=== PATIENT | female | born 1955 | race Caucasian/White ===

== ENCOUNTER → 2020-05-19 10:12 | Outpatient (CLI) | payer BC, SELFPAY ==
--- NOTE | ~2020-05-19 | MM_ITS ---
EXAMINATION: MM screening arnol BI w koko HISTORY: Screening TECHNIQUE: Craniocaudal and mediolateral oblique 3-D tomosynthesis images were obtained and synthetic 2-D images were generated. CAD analysis was submitted and interpreted. COMPARISON: Comparison to multiple prior studies sequentially, with oldest reviewed study dated 12/29. BREAST PARENCHYMAL COMPOSITION: There are scattered areas of fibroglandular density. FINDINGS: There is no evidence of suspicious mass, calcification, or architectural distortion to sugg est malignancy in either breast. There has been no suspicious interval change. IMPRESSION: 1. No mammographic evidence of malignancy. 2. Recommend routine screening mammography in one year. BI-RADS Category 1: Negative Reviewed, dictated and finalized at location A.
== END ==
PROVIDERS: PCP Family Medicine Adolescent Medicine; Visit Provider Nurse Practitioner
DX: Z12.31 Encounter for screening mammogram for malignant neoplasm of breast (principal); M85.88 Other specified disorders of bone density and structure, other site
CPT/HCPCS: 77063; 77067

== ENCOUNTER → 2020-07-18 09:13 | Outpatient (CLI) | payer MEDICARE, SELFPAY ==
--- NOTE | ~2020-07-18 | DEXA_ITS ---
Bone Density Report Name: Isabelle Galdamez Age: 64 Sex: Female Ethnicity: White Date of : 1955 Indication: osteopenia; asthma or emphysema; postmenopausal Referring Provider: SARINA, AMBAR Study: Bone densitometry was performed. Exam Date: July 18, 2020 Accession number: [id number] Bone Density: Region BMD T-score Z-score Classification AP Spine (L1, L2, L3) 0.751 -2.4 -0.7 Osteopenia Femoral Neck (Left) 0.639 -1.9 -0.4 Osteopenia Total Hip (Left) 0.872 -0.6 0.6 Normal Femoral Neck (Right) 0.645 -1.8 -0.3 Osteopenia Total Hip (Right) 0.870 -0.6 0.6 Normal Total Hip Mean 0.871 -0.6 0.6 Normal World Health Organization criteria for BMD impression classify patients as: Normal (T-score at or above -1.0), Osteopenia (T-score between -1.0 and -2.5), or Osteoporosis (T-score at or below -2.5). 10-year Fracture Risk(1): Major Osteoporotic Fracture 9.8% Hip Fracture 1.3% Reported Risk Factors: [place] (), Neck BMD=0.645, BMI=27.5 (1) FRAX(R) Version 3.08. Fracture probability calculated for an untreated patient. Fracture probability may be lower if the patient has received treatment. Previous Exams: Region Exam Age BMD T-score BMD Change BMD Change Date g/cm2 vs Baseline vs Previous AP Spine(L1, L2, L3) 07/18/2020 64 0.751 -2.4 -0.163* -0.024* 12/25/2017 62 0.775 -2.2 -0.138* -0.016 10/24/2015 60 0.791 -2.1 -0.122* 0.012 10/12/2013 58 0.779 -2.2 -0.135* -0.056* 05/07/2011 55 0.835 -1.7 -0.079* -0.079* 08/10/2009 53 0.913 -1.0 Total Hip(Left) 07/18/2020 64 0.872 -0.6 -0.078* -0.025 12/25/2017 62 0.897 -0.4 -0.053* -0.026 10/24/2015 60 0.923 -0.2 -0.027 0.066* 10/12/2013 58 0.857 -0.7 -0.093* -0.062* 05/07/2011 55 0.919 -0.2 -0.031* -0.031* 08/10/2009 53 0.950 0.1 Total Hip(Right) 07/18/2020 64 0.870 -0.6 -0.073* -0.010 12/25/2017 62 0.880 -0.5 -0.062* -0.026 10/24/2015 60 0.907 -0.3 -0.036* 0.063* 10/12/2013 58 0.844 -0.8 -0.099* -0.056* 05/07/2011 55 0.900 -0.3 -0.043* -0.043* 08/10/2009 53 0.943 0.0 *Denotes significance at 95% confidence level, LSC for AP Spine = 0.022 g/cm2, LSC for Total Hip = 0.027 g/cm2 Clinical Information Provided by Patient:
== END ==
PROVIDERS: PCP Family Medicine Adolescent Medicine; Visit Provider Nurse Practitioner
DX: M85.88 Other specified disorders of bone density and structure, other site (principal); M85.852 Other specified disorders of bone density and structure, left thigh; M85.851 Other specified disorders of bone density and structure, right thigh
CPT/HCPCS: 77080

== ENCOUNTER 2020-11-18 09:00 | Outpatient (CLI) | payer MEDICARE, SELFPAY | END 2020-11-18 09:01 | disposition home or self-care (01) | LOC: ANHCOVIDVC 09:00 | PROVIDERS: PCP Family Medicine Adolescent Medicine | DX: Z23 Encounter for immunization (principal) | CPT/HCPCS: 0001A; 91300 ==

== ENCOUNTER 2020-12-09 09:00 | Outpatient (CLI) | payer MEDICARE, SELFPAY | END 2020-12-09 09:01 | disposition home or self-care (01) | LOC: ANHCOVIDVC 09:00 | PROVIDERS: PCP Family Medicine Adolescent Medicine | DX: Z23 Encounter for immunization (principal) | CPT/HCPCS: 0002A; 91300 ==

== ENCOUNTER → 2021-06-27 12:12 | Outpatient (CLI) | payer MEDICARE, SELFPAY ==
--- NOTE | ~2021-06-27 | MM_ITS ---
EXAMINATION: MM screening arnol BI w koko HISTORY: Screening TECHNIQUE: Craniocaudal and mediolateral oblique 3-D tomosynthesis images were obtained and synthetic 2-D images were generated. CAD analysis was submitted and interpreted. COMPARISON: Comparison to multiple prior studies sequentially, with oldest reviewed study dated 11/09. BREAST PARENCHYMAL COMPOSITION: There are scattered areas of fibroglandular density. FINDINGS: There is no evidence of suspicious mass, calcification, or architectural distortion to sugg est malignancy in either breast. There has been no suspicious interval change. IMPRESSION: 1. No mammographic evidence of malignancy. 2. Recommend routine screening mammography in one year. BI-RADS Category 1: Negative Reviewed, dictated and finalized at location A.
== END ==
PROVIDERS: PCP Family Medicine Adolescent Medicine; Visit Provider Nurse Practitioner
DX: Z12.31 Encounter for screening mammogram for malignant neoplasm of breast (principal)
CPT/HCPCS: 77063; 77067

== ENCOUNTER → 2021-07-13 14:46 | Outpatient (CLI) | payer MEDICARE, SELFPAY ==
--- NOTE | ~2021-07-13 | XR_ITS ---
EXAMINATION: XR chest 2V DATE: 07/13/2021 15:08 INDICATION: Recurrent cough. TECHNIQUE: Frontal and lateral views of the chest were obtained. COMPARISON: None. FINDINGS: The chest demonstrates clear lungs without pneumonia, pleural effusion, or pneumothorax. Th e heart size is normal. IMPRESSION: 1. No acute cardiopulmonary disease. Reviewed, dictated and finalized at location A.
== END ==
PROVIDERS: PCP Family Medicine Adolescent Medicine; Visit Provider Family Medicine Adolescent Medicine
DX: R05.9 Cough, unspecified (principal)
CPT/HCPCS: 71046

== ENCOUNTER 2021-11-24 10:31 | Outpatient (CLI) | payer OTHER, SELFPAY ==
--- NOTE | 2021-11-24 10:30 | ECG_ITS ---
Measurements Intervals [place] Rate: 87 P: 38 [place]: 145 QRS: 26 QRSD: 81 T: 34 QT: 365 QTc: 440 Interpretive Statements SINUS RHYTHM POSSIBLE LEFT ATRIAL ENLARGEMENT [-0.1mV P WAVE IN V1/V2] RSR' V1/V2 BASELINE ARTIFACT BORDERLINE ECG NO PREVIOUS ECG AVAILABLE FOR COMPARISON Electronically Signed On 11-24-2021 15:13:10 COLOR EXPERT by Tomas Staton M.D.
[2021-11-24 10:57] LABS: Hematocrit 45.7 % (37.0-47.0); Hemoglobin 15.4 g/dL (12.0-15.0)
== END 2021-11-24 10:32 | disposition home or self-care (01) ==
LOC: ANHSURGERY 10:33
PROVIDERS: Anesthesiology; PCP Family Medicine Adolescent Medicine; Visit Provider Surgery Plastic and Reconstructive Surgery
DX: L57.4 Cutis laxa senilis (principal); Z01.818 Encounter for other preprocedural examination; R94.31 Abnormal electrocardiogram [ECG] [EKG]
CPT/HCPCS: 36415; 85014; 85018; 93005

== ENCOUNTER 2021-11-28 00:52 | Day surgery (SDC) | payer OTHER, SELFPAY ==
--- NOTE | 2021-11-22 13:37 | PC.NURSE ---
Report to the Outpatient Waiting Room, entrance under the green pavilion located off [facility], at time _0600 on date __11/28/21 . OR Time: . - You and your visitor will be asked a series of questions to screen for COVID 19 for your protection. - A mask is required within the hospital. Preoperative COVID Testing Requirements: No COVID Test needed if: (proof is required; if not received patient will have Rapid Test prior to entry) - Patient has received COVID Vaccine at least 14 days prior to procedure date or - Patient has positive COVID test result within last 90 days of surgery date. COVID Test needed if above criteria is not met If not COVID vaccinated a COVID test must be conducted within 72 hours of surgery and patient is asked to isolate self from time of testing until procedure. You will go to the [facility] for your COVID testing. The [facility] is located at the corner of [address] [facility]. You will only be called if COVID results are positive and your surgeon may reschedule your elective surgery date. Patients may have clear liquids (water, carbonated beverages, clear teas, apple juice) until 3 hours prior to surgery with a maximum of 20 ounces. - No food from midnight until time of surgery Take the following medications with a SIP of water the morning of surgery: ___INHALER IF NEEDED Medications to discontinue per physician ALL VITAMINS AND SUPPLEMENTS 3 DAYS PRE OP Date to take last dose___11/24/21 Please no make-up, nail tamazight, hairspray, perfume, deodorant, or body powder the day of surgery. No jewelry (including any body piercings) or valuables the day of surgery, leave them at home. Please take a shower or bath the night before, or the morning of, surgery with an antibacterial soap. Wear comfortable, loose fitting clothing. Children are encouraged to wear pajamas. - Jewelry must be removed prior to entering the operating room. Rings and piercings that are not removed may be cut off. - The hospital will not accept responsibility for valuables. - Please leave all valuables, including medications, at home the day of surgery. If you are going home after surgery, a licensed bookmobile driver must drive you home. - NO public transportation without another adult. - We recommend that an adult stay with you for 24 hours following discharge. - We also recommend that you do not drive, make important decision, drink alcoholic beverages, or take any drugs that were not prescribed by your health care provider for at least 24 hours after your discharge time. One visitor will be allowed to accompany the patient into the hospital. Patients visitor will be instructed to remain with patient at all times or leave the building. We will allow the visitor to come back to the postoperative area when patient is ready. Follow any additional instructions given to you from your surgeon. Telephone instructions given to __PATIENT and asked if any additional questions and then verbalized understanding. Patient advised to call surgeon office or pre surgery nurse liaison [phone] if any additional questions.
[2021-11-22 13:45] VITALS: BMI 28.9
--- NOTE | 2021-11-27 16:28 | WPDANESEPPF ---
Anes - Initial Pre Proc Eval Procedure: Operation Date: 11/28/21 07:30 Proposed Procedures p Temporal Brow Lift, - Anam Briones MD s Face and Neck Lift with Facial Fat Grafting, - Anam Briones MD s Abdominoplasty - Anam Briones MD Date/Time: 11/27/21 16:28 Surgeon: Anam Briones MD Pre Op Diagnosis: skin laxity Patient Data Age: 66 Gender: F Height: 1.57 m Weight: 71.7 kg Allergies Allergy/AdvReac Type Severity Reaction Status Date / Time Sulfa (Sulfonamide Allergy Unknown unknown Verified 11/28/21 07:01 Antibiotics) codeine AdvReac Nausea Verified 11/28/21 07:01 Home Medications Medication Instructions Recorded Confirmed Type carisoprodol 350 mg tablet 350 mg PO TID PRN #21 tablet 11/15/21 11/28/21 Rx docusate sodium 100 mg capsule 100 mg PO DAILY #14 cap 11/15/21 11/28/21 Rx ondansetron HCl 4 mg tablet 4 mg PO Q8H #21 tablet 11/15/21 11/28/21 Rx oxycodone-acetaminophen 5 mg-325 1 tablet PO Q6H PRN #30 tablet 11/15/21 11/28/21 Rx mg tablet albuterol sulfate 2 puff INHALATION PRN PRN 11/22/21 11/28/21 History biotin 5 mg PO DAILY 11/22/21 11/28/21 History cyanocobalamin (vitamin B-12) 1,000 mcg PO 3XW 11/22/21 11/28/21 History multivitamin with minerals 1 tablet PO DAILY 11/22/21 11/28/21 History [Hair,Skin and Nails] Patient hx anesthesia problems: none Family hx anesthesia problems: none Results Review: All pre-operative results and documents have been reviewed as part of the pre-operative evaluation. [facility] Past Medical History Medical History (Updated 11/27/21 @ 16:28 by Daryl Cohn MD) Asthma Surgical History Surgical History History of Family History Family History Other Dementia Pulmonary fibrosis Social History Social History Smoking packs per day: 0.5 Smoking cigarettes per day: 10.0 Years smoked: 10 Smoking pack-years: 5.00 Smoking status: Former smoker Tobacco type: cigarettes Smoking end date: 09/16/84 Living arrangements: with family Spiritual care concerns: No Anes - Eval Final PreProcedure Day of Procedure 11/27/21 16:28 Patient weight: overweight Heart: regular rate and rhythm Lungs: clear to auscultation Airway: Mallampati scale class II Neurological: alert and oriented Last oral intake: >/= 8 hours ASA classification: II Emergent: no Anesthetic plan: proceed Anesthesia type and monitoring: general ETT and standard monitoring Results Review: All pre-operative results and documents have been reviewed as part of the pre-operative evaluation. Informed Consent: The patient's anesthetic plan and its attendant risks and benefits were discussed with the patient/family/POA. Questions were solicited and answers provided to the satisfaction of the patient/family/POA.
[2021-11-28] VITALS (10 sets, daily range): BP systolic 121–136; BP diastolic 69–79; PULSE 76–99; RESP 12–20; TEMP 36.3–37.1; O2SAT 94–98
[2021-11-28] MEDS: LACTATED RINGERS 1,000 ML 30 ML IV CONT ×2 (06:31→15:03)
[2021-11-28 06:42] LABS: Urine Cotinine NEGATIVE
--- NOTE | 2021-11-28 07:15 | WPDHPUPDATE1 ---
History and Physical Update Update Date/Time: 11/28/21 07:15 History and Physical has been reviewed, including an updated exam of the patient. There are NO changes in the patient's condition. Risks, benefits, and alternatives have been discussed and questions answered. Patient agrees to proceed with procedure.
--- NOTE | 2021-11-28 07:15 | W.PM.PROC2 ---
Procedure Note - Detailed Date of Procedure 11/28/21 Pre-op Diagnosis skin laxity Post-op Diagnosis Same Procedure Performed 1. Bilateral temporal subcutaneous brow lift. 2. Face / Neck lift 3. Facial fat grafting 4. Progressive tension abdominoplasty Surgeon Anam Briones MD Findings Facial fat grafting volume Right Infraorbital 3cc Lateral orbital 2cc Malar 5cc Yazidi 2cc Nasal labial 0.5cc Left Infraorbital 3cc Lateral orbital 1.5cc Malar 4cc Yazidi 2cc Nasal labial 0.5cc Abdominoplasty tissue removed: 1264 grams Description of Procedure They are here today for the above. Previously and again today the risks, benefits, alternatives were discussed in extensive detail. I wanted them to be very realistic about the risks involved as well as expectations. She understands we will improve structure however not skin quality. This is completed with other treatments such as laser resurfacing. She also understands we will do nothing perioccular. She does have some hallowing of upper lid; however, is happy with appearance and does not wish to treat. We discussed aftercare and what to monitor for. I was very upfront about the risks of wound breakdown leading to loss of skin, open wounds, and need for additional procedures with permanent abdominal deformity. We discussed DVT/PE risks and management. Made sure answered all of their questions to their satisfaction today and consent was obtained. They were marked in the preoperative holding area with their verification. The patient was taken to the operating room placed supine on the operating table. Anesthesia was provided by anesthesiology. A Amado catheter was started. They were prepped and draped in a standard sterile fashion. A surgical time-out was taken. Fat grafting A thorough abdominal examination was completed. No hernias palpable. Stab incision was made and a tumesced with a tumescent solution. Once adequate time for hemostasis I used a 3 mm multi hole suction cannula on low-pressure into a gravity separation device. We will out adequate time for separation of the adipose tissue and then proceeded with facial fat grafting. Using only the central adipose tissue which was passed through a lower lock adapter in order to create micro fat I used 18 gauge needle and blunt tip cannula to inject infraorbital, malar, temples as wall as along the marionette and nasolabial folds. In the nasolabial and marionette I used a V dissect her as well. C volume so above. Brow lift 1% lidocaine and 0.25% Marcaine with epinephrine was used anesthetize the planned incision as well as dissection region. Fifteen blade was used to make an incision along the hairline extending from mid pupillary laterally. I elevated in the subcutaneous plane superficial to the frontalis muscle down to above the orbital rim and lateral to the orbital rim. I estimate amount to be removed based on preoperative markings and intraoperative observations. This was tacked into place and I closed with 4-0 Nylon. Face / Neck Lift Stab incisions were made and I tumesced with a tumescent solution. Once adequate time for hemostasis a 15 blade used to make a submental incision. I elevated the neck flap as necessary leaving well-vascularized adipose tissue on the flap. Also incised pre of brachial her and post tragal incisions and elevated the facial flaps as necessary for full exposure. I also left these well-vascularized raising just above the SMAS. Submental dissection was continued down and the elevated bilateral platysma. Removed any excess adipose tissue of which she had minimal. I then plicated the platysma in the midline using vertical mattress 2-0 Vicryl. Platysma was transected. I created a platysmal platysmal window which was sutured to mastoid fascia with 2-0 Vicryl. Bilteral SMAS was plicated using 2-[address] bilateral 10 Nicolas drains which were brought out postauricular thro
[2021-11-28] MEDS: ceFAZolin 2 GM/D5W 50 ML 2 GM/50 ML BAG IVPB (07:32)
[2021-11-28] MEDS: TRANEXAMIC ACID 1,000MG/ISO100 1,000 MG/100 ML BAG 200 MG IVPB (07:46)
[2021-11-28] MEDS: BUPIVACAINE/EPINEPHRINE 0.25% 10 ML VIAL 60 ML INFILTRATE (08:34)
[2021-11-28] MEDS: LIDO 1%/EPINEPHRINE/PF 1:200,000 30 ML VIAL XX (10:45)
[2021-11-28] MEDS: ceFAZolin SODIUM 1 GM VIAL IV PUSH (11:33)
--- NOTE | 2021-11-28 16:02 | SUR.PHASEI ---
1600 - called dr. way's office in regards to rt LUZ ELENA drain not holding suction. Spoke with Kendra, she stated that she would tell dr. way and that if she doesnt call back, all would be ok
[2021-11-28] MEDS: ONDANSETRON INJ 4 MG/2 ML VIAL IV PUSH (16:28)
[2021-11-28] MEDS: LACTATED RINGERS 1,000 ML 125 ML IV CONT (17:20)
[2021-11-28] MEDS: carisoprodoL (*CRX) 350 MG TABLET PO (17:27)
--- NOTE | 2021-11-28 17:45 | OBPPTRN ---
Patient transferred to post room #289 via bed. Support person present. Oriented to unit, room, information board, rooming in, admission packet and security measures. Patient verbalizes understanding.
[2021-11-28] MEDS: ENOXAPARIN 40 MG/0.4 ML SYRINGE SUB-Q (20:21)
[2021-11-28] MEDS: DOCUSATE SODIUM 100 MG CAPSULE PO (20:21)
[2021-11-28] MEDS: MORPHINE SULFATE (*CRX) 2 MG/ML INJ IV PUSH (23:54)
[2021-11-29] VITALS: BP 134/75; PULSE 87; RESP 16; TEMP 36.7; O2SAT 98
[2021-11-29] MEDS: LACTATED RINGERS 1,000 ML 125 ML IV CONT
[2021-11-29] MEDS: MORPHINE SULFATE (*CRX) 2 MG/ML INJ IV PUSH (03:16)
[2021-11-29 05:20] VITALS: BP 115/68; PULSE 86; RESP 16; TEMP 36.6; O2SAT 98
[2021-11-29] MEDS: carisoprodoL (*CRX) 350 MG TABLET PO ×3 (05:24→12:20)
[2021-11-29] MEDS: oxyCODONE/ACETAMINOPHEN (*CRX) 5-325 MG TABLET PO ×2 (05:24→12:20)
--- NOTE | 2021-11-29 06:19 | WPDPN ---
Progress Note: A&P Assessment and Plan (1) Encounter for cosmetic surgery: Code(s): Z41.1 - Encounter for cosmetic surgery Status: Acute Assessment and Plan: She is doing very well after face and neck lift, temporal brow lift, facial fat grafting, progressive tension abdominoplasty. Will discharge home when ambulating, pain controlled, tolerating diet. Today we spent more than 25 minutes discussing the care. What monitor for. This was a lengthy open-ended conversation answering all of her questions. We discussed what is a medical emergency and went to proceed to the ER/ dial 911. She understands we are available for all other questions. She was able to voice is clear understanding. We will see her back. Time Spent With Patient Time with patient: 25 - 35 minutes Subjective Date/time seen: 11/29/21 06:00 Overnight she has had a little bit of nausea. She has been able to sit on the side of the bed but again has a little bit of nausea with this. Otherwise doing well. No emesis. No fevers or chills. No shortness of breath. No calf tenderness. Review of Systems Review of Systems: All systems reviewed & are unremarkable except as noted in HPI and below Exam Narrative: Alert and oriented Respiratory unlabored Normal gross vision. Facial nerve intact. She has full smile. Able to elevate brow. No lagophthalmos. She is healing well. I see no signs of infection. No hematoma. No seroma. Good color and capillary refill. Abdomen is healing well. No signs of infection. No hematoma. No seroma. Good color and capillary refill. No calf tenderness. Negative Homans. Objective Data Vital Signs Vital Signs: Vital Signs - 24 hr 11/28/21 15:03 11/28/21 15:15 11/28/21 15:30 Temperature 36.3 C L Pulse Rate 99 86 92 Respiratory Rate 20 18 12 Blood Pressure 130/73 122/74 121/70 Pulse Oximetry 98 94 94 11/28/21 15:45 11/28/21 16:00 11/28/21 16:15 Temperature Pulse Rate 89 84 87 Respiratory Rate 16 14 16 Blood Pressure 129/71 128/74 128/74 Pulse Oximetry 96 95 95 11/28/21 16:35 11/28/21 16:48 11/28/21 20:30 Temperature 36.6 C 37.1 C Pulse Rate 76 80 88 Respiratory Rate 18 20 18 Blood Pressure 122/73 136/77 135/79 Pulse Oximetry 97 97 97 11/29/21 00:00 11/29/21 05:20 Temperature 36.7 C 36.6 C Pulse Rate 87 86 Respiratory Rate 16 16 Blood Pressure 134/75 115/68 Pulse Oximetry 98 98 Intake/Output Intake/Output: Intake & Output 11/26/21 11/27/21 11/28/21 11/29/21 23:59 23:59 23:59 23:59 Intake Total 1650 2250 Output Total 775 1915 Balance 875 335 Meds/Results Medications: Active Medications Generic Name Dose Route Start Last Admin Trade Name Freq PRN Reason Stop Dose Admin Carisoprodol 350 mg 11/28/21 18:00 11/29/21 05:24 Carisoprodol (*Crx) 350 Mg Tablet PO 350 mg Q6HR RALPH Administration Diazepam 5 mg 11/28/21 14:29 Diazepam (*Crx) 5 Mg Tablet PO TID PRN Anxiety Docusate Sodium 100 mg 11/28/21 21:00 11/28/21 20:21 Docusate Sodium 100 Mg Capsule PO 100 mg Q12HR RALPH Administration Enoxaparin Sodium 40 mg 11/28/21 21:00 11/28/21 20:21 Enoxaparin 40 Mg/0.4 Ml Syringe SUB-Q 40 mg DAILY@2100 RALPH Administration Morphine Sulfate 2 mg 11/28/21 14:29 11/29/21 03:16 Morphine Sulfate (*Crx) 2 Mg/Ml Inj IV PUSH 2 mg Q2H PRN Administration Pain Ondansetron HCl 4 mg 11/28/21 14:29 Ondansetron Inj 4 Mg/2 Ml Vial IV PUSH Q6H PRN Nausea Oxycodone/Acetaminophen 1 - 2 tablet 11/28/21 14:29 11/29/21 05:24 Oxycodone/Acetaminophen (*Crx) 5-325 Mg Tablet PO 2 tablet Q6H PRN Administration Pain Labs Labs: Laboratory Results - last 24 hr 11/28/21 06:06 Cotinine Negative
--- NOTE | 2021-11-29 06:29 | P.DS_ITS ---
DS: Admitting Diagnosis Discharge Date 11/29/2021 Admitting Diagnosis encounter cosmetic surgery DS: Discharge Diagnosis Discharge Diagnosis (1) Encounter for cosmetic surgery: Code(s): Z41.1 - Encounter for cosmetic surgery Status: Acute DS: Summary Hospital Course Hospital Course: She underwent face / neck lift, temporal brow lift, facial fat grafting, progressive tension abdominoplasty. Postoperatively has done well. Will discha rge home. Time Spent with Patient Time attestation: Total time spent providing and/or coordinating discharge services: 25 minutes Exam Narrative: Alert and oriented Respiratory unlabored Normal gross vision. Facial nerve intact. She has full smile. Able to elevate brow. No lagophthalmos. She is healing well. I see no signs of infection. No hematoma. No seroma. Good color and capillary refill. Abdomen is healing well. No signs of infection. No hematoma. No seroma. Good color and capillary refill. No calf tenderness. Negative Homans. DS: Data Data Completed and Pending Labs on day of discharge: Labs from last 24 hours 11/28/21 06:06 Cotinine Negative Discharge Plan Discharge Patient Disposition: Home, Self-Care Discharge Instructions: POST OPERATIVE DISCHARGE INSTRUCTIONS ANAM BRIONES M.D. [facility] [address] [place] [address] * No driving for 24 hours after anesthesia and while you are taking pain medication. * Take all prescribed medication as directed * Diet as tolerated. * No lifting or activity that raises blood pressure for 48 hours. * Regular walking / ambulation. * No showering until directed to. Once you shower do not take pain medication before showering as the combination of medication and heat may cause you to feel dizzy or pass out. * No pools or tubs for 2 weeks. * Call with any questions or concerns. * Slowly stand up straight over the week as tolerated. * No straining or lifting more than 20 pounds for 6 weeks. * Dressing Care: Keep drain sites clean / dry. If you have any questions or concerns, please call the office . If it is after hours you will be directed to the media relations intern exchange. Shortness of breath, chest pain, or other medical emergency dial 911 / proceed to the Emergency Room. Patient Instructions: Brian-Oliva Drain Care (GEN) Stand Alone Forms: General Discharge Instructions Follow-up/Referrals: Anam Briones MD [Physician] - 1 Week Discharge Medications: Continued docusate sodium [Colace] 100 mg capsule 100 mg PO DAILY Qty: 14 RF: 0 ondansetron HCl 4 mg tablet 4 mg PO Q8H Qty: 21 RF: 0 carisoprodol [Soma] 350 mg tablet 350 mg PO TID PRN (Reason: muscle pain) Qty: 21 RF: 0 oxycodone-acetaminophen [Percocet] 5-325 mg tablet 1 tablet PO Q6H PRN (Reason: pain) Qty: 30 RF: 0 cyanocobalamin (vitamin B-12) 1,000 mcg Tablet 1,000 mcg PO 3XW RF: 0 Hair,Skin and Nails Tablet 1 tablet PO DAILY RF: 0 biotin 5 mg Capsule 5 mg PO DAILY RF: 0 albuterol sulfate 90 mcg/actuation HFA aerosol inhaler 2 puff INHALATION PRN PRN (Reason: Allergy Symptoms) RF: 0
[2021-11-29 09:05] VITALS: BP 107/68; PULSE 85; RESP 16; TEMP 36.9; O2SAT 91
[2021-11-29] MEDS: ONDANSETRON INJ 4 MG/2 ML VIAL IV PUSH (09:14)
[2021-11-29 10:00] VITALS: PULSE 85; RESP 16; O2SAT 91
--- NOTE | 2021-11-29 10:55 | WPDANESPN ---
Anes - Prog Note Post-Op Date/Time: 11/29/21 10:55 Cardiovascular status: normal Respiratory status: normal Airway patency: baseline Mental status: baseline Post-Op hydration status: normal Vital Signs: Last Vital Signs Temp 36.9 C 11/29/21 09:05 Pulse 85 11/29/21 09:05 Resp 16 11/29/21 09:05 BP 107/68 11/29/21 09:05 Pulse Ox 91 11/29/21 09:05 Pain Score (VAS): 10/26 I/O: Intake & Output 11/28/21 11/29/21 11/29/21 23:59 07:59 15:59 Intake Total 500 2250 500 Output Total 350 1915 Balance 150 335 500 Post-procedural complaints: none Patient Feedback: Patient satisfied with anesthetic care.
== END 2021-11-29 12:50 | disposition home or self-care (01) ==
LOC: ANHSURGERY 07:31 → ANHOB2 16:44
PROVIDERS: PCP Family Medicine Adolescent Medicine; Visit Provider Surgery Plastic and Reconstructive Surgery
PROC: (CPT 15824; principal; 2021-11-28 07:30)
PROC: (CPT 15824; 2021-11-28 07:30)
PROC: (CPT 15824; 2021-11-28 07:30)
DX: Z41.1 Encounter for cosmetic surgery (principal); L57.4 Cutis laxa senilis; J45.909 Unspecified asthma, uncomplicated; Z79.51 Long term (current) use of inhaled steroids; Z79.899 Other long term (current) drug therapy; Z87.891 Personal history of nicotine dependence
CPT/HCPCS: 15824; 15825; 15829; 15830; 15847; 15773; 80307; 99199; A9270; J0171; J0690; J1100; J1170; J1650; J2250; J2270; J2370; J2405; J2704; J2710; J3010; J7030; J7120; Q9968

== ENCOUNTER → 2022-10-04 10:55 | Outpatient (CLI) | payer MEDICARE, SELFPAY ==
--- NOTE | ~2022-10-04 | MM_ITS ---
EXAMINATION: MM screening [facility] BI w koko HISTORY: Screening mammogram TECHNIQUE: Craniocaudal and mediolateral oblique 3-D tomosynthesis images were obtained and synthetic 2-D images were generated. CAD analysis was submitted and interpreted. COMPARISON: 06/27/2021, 05/19/2020, 01/13/2019, 12/29/2018 BREAST PARENCHYMAL COMPOSITION: There are scattered areas of fibroglandular density. FINDINGS: No suspicious mass, calcification, or architectural distortion are identified in either day ast to suggest malignancy. There has been no suspicious interval change. IMPRESSION: 1. No mammographic evidence of malignancy. 2. Recommend routine screening mammography in one year. BI-RADS Category 1: Negative Reviewed, dictated and finalized at location A. MASTER
--- NOTE | ~2022-10-04 | DEXA_ITS ---
Bone Density Report Name: MAYE ANGEL Age: 67 Sex: Female Ethnicity: White Date of : 1955 Indication: osteopenia; postmenopausal Referring Provider: SARINA, AMBAR Study: Bone densitometry was performed. Exam Date: October 04, 2022 Accession number: [id number] Bone Density: Region BMD T-score Z-score Classification AP Spine (L1, L2, L3) 0.709 -2.8 -0.9 Osteoporosis Femoral Neck (Left) 0.651 -1.8 -0.2 Osteopenia Total Hip (Left) 0.896 -0.4 1.0 Normal Femoral Neck (Right) 0.634 -1.9 -0.3 Osteopenia Total Hip (Right) 0.866 -0.6 0.7 Normal Total Hip Mean 0.881 -0.5 0.9 Normal World Health Organization criteria for BMD impression classify patients as: Normal (T-score at or above -1.0), Osteopenia (T-score between -1.0 and -2.5), or Osteoporosis (T-score at or below -2.5). 10-year Fracture Risk: FRAX not reported because: Some T-score for Spine Total or Hip Total or Femoral Neck at or below -2.5 Previous Exams: Region Exam Age BMD T-score BMD Change BMD Change Date g/cm2 vs Baseline vs Previous AP Spine(L1, L2, L3) 10/04/2022 67 0.709 -2.8 -0.204* -0.041* 07/18/2020 64 0.751 -2.4 -0.163* -0.024* 12/25/2017 62 0.775 -2.2 -0.138* -0.016 10/24/2015 60 0.791 -2.1 -0.122* 0.012 10/12/2013 58 0.779 -2.2 -0.135* -0.056* 05/07/2011 55 0.835 -1.7 -0.079* -0.079* 08/10/2009 53 0.913 -1.0 Total Hip(Left) 10/04/2022 67 0.896 -0.4 -0.053* 0.025 07/18/2020 64 0.872 -0.6 -0.078* -0.025 12/25/2017 62 0.897 -0.4 -0.053* -0.026 10/24/2015 60 0.923 -0.2 -0.027 0.066* 10/12/2013 58 0.857 -0.7 -0.093* -0.062* 05/07/2011 55 0.919 -0.2 -0.031* -0.031* 08/10/2009 53 0.950 0.1 Total Hip(Right) 10/04/2022 67 0.866 -0.6 -0.077* -0.004 07/18/2020 64 0.870 -0.6 -0.073* -0.010 12/25/2017 62 0.880 -0.5 -0.062* -0.026 10/24/2015 60 0.907 -0.3 -0.036* 0.063* 10/12/2013 58 0.844 -0.8 -0.099* -0.056* 05/07/2011 55 0.900 -0.3 -0.043* -0.043* 08/10/2009 53 0.943 0.0 *Denotes significance at 95% confidence level, LSC for AP Spine = 0.022 g/cm2, LSC for Total Hip = 0.027 g/cm2 Clinical Information Provided by Patient: Baumann
== END ==
PROVIDERS: PCP Family Medicine Adolescent Medicine; Visit Provider Nurse Practitioner
DX: Z12.31 Encounter for screening mammogram for malignant neoplasm of breast (principal); M85.88 Other specified disorders of bone density and structure, other site; M81.0 Age-related osteoporosis without current pathological fracture; M85.852 Other specified disorders of bone density and structure, left thigh; M85.851 Other specified disorders of bone density and structure, right thigh
CPT/HCPCS: 77063; 77067; 77080

== ENCOUNTER 2023-11-27 10:44 | Outpatient (CLI) | payer MEDICARE, SELFPAY ==
--- NOTE | ~2023-11-27 | MM_ITS ---
EXAMINATION: MM screening arnol BI w koko HISTORY: Screening mammogram TECHNIQUE: Craniocaudal and mediolateral oblique 3-D tomosynthesis images were obtained and synthetic 2-D images were generated. Bilateral rotated lateral CC views. CAD analysis was submitted and interp reted. COMPARISON: 10/04/2022, 06/27/2021 bilateral screening mammogram examinations BREAST PARENCHYMAL COMPOSITION: There are scattered areas of fibroglandular density. FINDINGS: There is no evidence of suspicious mass, calcification, or architectural distortion to sugg est malignancy in either breast. There has been no suspicious interval change. IMPRESSION: 1. No mammographic evidence of malignancy. 2. Recommend routine screening mammography in one year. BI-RADS Category 1: Negative Reviewed, dictated and finalized at location A.
== END 2023-11-27 10:45 ==
PROVIDERS: PCP Family Medicine Adolescent Medicine; Visit Provider Nurse Practitioner
DX: Z12.31 Encounter for screening mammogram for malignant neoplasm of breast (principal)
CPT/HCPCS: 77063; 77067

== ENCOUNTER 2024-08-05 15:58 | Outpatient (CLI) | payer MEDICARE, SELFPAY ==
--- NOTE | ~2024-08-05 | XR_ITS ---
CHEST RADIOGRAPH, PA AND LATERAL CLINICAL HISTORY: R05.3 - Chronic cough . COMPARISON: 07/13/2021 TECHNIQUE: PA and lateral views of the chest. FINDINGS The cardiomediastinal silhouette is unremarkable. The lungs are clear. Visualized osseous structures and soft tissues are unremarkable. IMPRESSION: No focal infiltrate or effusion. Reviewed, dictated and finalized at location A. SECURITY CONSULTANT
== END 2024-08-05 15:59 | disposition home or self-care (01) ==
LOC: MICIMG 15:58
PROVIDERS: PCP Family Medicine Adolescent Medicine; Visit Provider Family Medicine Adolescent Medicine
DX: R05.3 Chronic cough (principal)
CPT/HCPCS: 71046

== ENCOUNTER 2024-10-07 09:21 | Outpatient (CLI) | payer MEDICARE, SELFPAY ==
--- NOTE | ~2024-10-07 | DEXA_ITS ---
Bone Density Report Name: MAYE ANGEL Age: 69 Sex: Female Ethnicity: White Date of : 1955 Indication: postmenopausal; screening for osteoporosis; asthma or emphysema; Referring Provider: SARINA, AMBAR Study: Bone densitometry was performed. Exam Date: October 07, 2024 Accession number: [id number] Bone Density: Region BMD T-score Z-score Classification AP Spine(L2, L3, L4) 0.881 -1.8 0.3 Osteopenia Femoral Neck (Left) 0.624 -2.0 -0.3 Osteopenia Total Hip (Left) 0.788 -1.3 0.2 Osteopenia Femoral Neck (Right) 0.585 -2.4 -0.6 Osteopenia Total Hip (Right) 0.787 -1.3 0.2 Osteopenia Total Hip Mean 0.788 -1.3 0.2 Osteopenia World Health Organization criteria for BMD impression classify patients as: Normal (T-score at or above -1.0), Osteopenia (T-score between -1.0 and -2.5), or Osteoporosis (T-score at or below -2.5). 10-year Fracture Risk(1): Major Osteoporotic Fracture 13% Hip Fracture 2.9% Reported Risk Factors: [place] (), Neck BMD=0.585, BMI=22.3 (1) FRAX(R) Version 3.08. Fracture probability calculated for an untreated patient. Fracture probability may be lower if the patient has received treatment. Clinical Information Provided by Patient: Has used the following medications: Vitamin D, estradial/ progesterone Has the following medical conditions: Asthma or Emphysema Patient maximum height was 62 Menopause Age: 55 Drinks caffeinated beverages Onset of menses at age 11 Number of children 2 Impression: The patient has low bone mass, based on the Right Femoral Neck T-score. The patient has an estimated ten-year risk of hip fracture of 2.9% and an estimated ten-year risk of major fracture of 13%, based on the WHO FRAX algorithm. Discussion: BONE DENSITY IS LOW AT ONE OR MORE SKELETAL SITES. This patient's lowest T-score is low at one or more skeletal sites. It meets the World Health Organization's (WHO) criteria for ?low bone mass? (T-score between -1.0 and -2.5). The patient's 10-year risk of fracture as calculated by FRAX is less than the threshold where pharmacological therapy is recommended by the National Osteoporosis Foundation (NOF). However, all treatment decisions require clinical judgment and consideration of individual patient factors, including patient preferences, comorbidities, previous drug use, risk factors not captured in the FRAX model (e.g., frailty, falls, vitamin D deficiency, increased bone turnover, interval significant decline in bone density) and possible under or overestimation of fracture risk by FRAX. The patient should follow a healthful lifestyle (good nutrition with adequate calcium and vitamin D, and appropriate weight-bearing exercise). Follow-Up: Consider repeating this study in 2 to 3 years to reassess this patient's status, or sooner if there is some new clinical indication. Reported by: RANDY on 10/07/2024 10:10:00 AM. Reviewed, dictated and finalized at location AMery BEAL
--- OUTSIDE RECORDS SUMMARY | 2024-10-08 22:24 | XMS_ITS ---
Author Organization [facility] Address [address] [place] [address] Care Team Providers Care Unit Nurse Name Role Phone Mikel Krishnan [phone] REASON FOR VISIT Triton Laser Hair Removal Encounters Encounter Location Date Provider Diagnosis [facility] [place] ([address]) [address] [place] [address] 08/03/2024 Mikel Krishnan Plan Of Treatment No Information Progress Notes * Isabelle ANGELDOB:[birth year] (69 yo F)Acc No.[id number]:08/03/2024 Triton-30 Patient:?Isabelle ANGEL Provider:?Mikel Krishnan MD :1955???Age:68 Y???Sex:Female D ate:08/03/2024 Address:[address] [place], [place] [id number] Subjective: * Chief Complaints: * ???1. Triton Laser Hair Madhu teodora. * Medical History:? Objective: * Vitals:? Assessment: Plan: * Treatment: * Billing Information: * Visit Code:? * Procedure Codes:? * Electronic signature of Ata Krishnan MD, FAAAAI on 10/08/2024 at 10:24 PM HEALTH CENTER ASSOCIATE Sign off status: Pending * Provider:?Mikel Krishnan MD Date:?08/03 Generated for Printi ng/Faxing/eTransmitting on:?10/08/2024 10:24 PM HEALTH CENTER ASSOCIATE
--- OUTSIDE RECORDS SUMMARY | 2024-10-08 22:24 | XMS_ITS | Patient Health Record ---
Author Organization [facility] Address [address] [place] [address] Care Team Providers Care Asian Art Curator Name Role Phone Eulogio Mikelemily Olivas [phone] Reason For Referral No Information Encounters Encounter Location Date Provider Diagnosis [facility] [place] ([address]) [address] [place] [address] 01/27/2024 Mikel Krishnan [facility] [place] ([address]) [address] [place] [address] 10/21/2023 Mikel Krishnan [facility] [place] ([address]) [address] [place] [address] 11/25/2023 Mikel Krishnan [facility] [place] ([address]) [address] [place] [address] 08/10/2024 Mikel Krishnan [facility] [address] [place] [address] 02/05/2024 Mikel Krishnan Plan Of Treatment No Information
--- OUTSIDE RECORDS SUMMARY | 2024-10-08 22:24 | XMS_ITS ---
Author Organization [facility] Address [address] [place] [address] Care Team Providers Care First Sampler Name Role Phone Mikel Krishnan Unavailable [phone] REASON FOR VISIT [facility]: Laser treatment #4 of 5 (legs) Encounters Encounter Location Date Provider Diagnosis [facility] [place] ([address]) [address] [address] 08/06/2024 Mikel Krishnan Plan Of Treatment Next Appt Details Follow Up: 1 Week, Reason: Procedure Notes * Category Sub-Category Detail Notes [facility] Device Treatment Triton Triton Laser Hair Removal Head: Light (755/810) See written laser medical records Energy (07-13): 11 Pulse Type: Short Cooling: Strong Repeat Mode: 2 PPS Total Energy / Pulses: 2365 Adverse Reaction(s) / Comments:: None Progress Notes * Isabelle ANGELDOB:[birth year] (69 yo F)Acc No.[id number]:08/06/2024 Triton-30 Patient:?JEANNE Isabelle Provider:?Mikel Krishnan MD :1955???Age:68 Y???Sex:Female D ate:08/06/2024 Address:[address] [place], [place] [id number] Subjective: * Chief Complaints: * ???1. [facility]: Lase r treatment #4 of 5 (legs). * Medical History:? Objective: * Vitals:? Assessment: Plan: * Treatment: * Procedures:?[facility]: [facility]hetics Device Treatment:?Triton ?Triton Laser Hair Removal Head?Light (295/810) See written laser medical records ?Energy (10-)?11 ?Pulse Type?Short ?Cooling?Strong ?Repeat Mode?2 PPS ?Total Energy / Pulses?2365 ?Adverse Reaction(s) / Comments:?None? * Follow Up:?1 Week * Billing Information: * Visit Code:? * Procedure Codes:? * Electronic signature of Ata Krishnan MD, FAAAAI on 10/08/2024 at 10:24 PM WAREHOUSE ADMINISTRATIVE ASSISTANT Sign off status: Pending * Provider:?Mikel Krishnan MD Date:?08/06 Generated for Lam philippe/Jenniffer/eTchelsiesmitting on:?10/08/2024 10:24 PM WAREHOUSE ADMINISTRATIVE ASSISTANT
--- OUTSIDE RECORDS SUMMARY | 2024-10-08 22:24 | XMS_ITS | Clinical Summary ---
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 Gender Identity Not on file Sexual Orientation Not on file Plan of Treatment Health Maintenance Due Date Last Done Comments DEXA Bone Density 1955 Hepatitis C Virus (HCV) Screening 1955 TdaP Immunization 1955 Colonoscopy 2000 Colorectal Cancer Screening 2000 Cologuard 2005 Immunochemical Fecal Occult Blood 2005 Mammogram 2005 Pneumococcal Immunization (5 0+ years) (1 of 1 - PCV) 2005 Zoster Immunization (1 of 2) 2005 Influenza Immunization (#1) 2024 SARS-COV-2 Immunization ( season) 2024 08/29/2021, 12/09/2020, 11/18/2020 Respiratory Syncytial Virus (RSV) Immunization (Adult) (1 - 1-dose 75+ series) 2030 Hepatitis B Immunization Aged Out No longer eligible based on patient's age to complete this topic Meningococcal Immunization (ACWY) Aged Out No longer eligible b ased on patient's age to complete this topic Rotavirus Immunization Aged Out No lo nger eligible based on patient's age to complete this topic
--- OUTSIDE RECORDS SUMMARY | 2024-10-08 22:24 | XMS_ITS ---
Author Organization [facility] Address [address] [place] [address] Care Team Providers Care Geophysical Prospecting Permit Agent Name Role Phone Mikel Krishnan Unavailable [phone] REASON FOR VISIT [facility]: Laser treatment #5 of 5 (legs) Encounters Encounter Location Date Provider Diagnosis [facility] [place] ([address]) [address] [place] [address] 08/10/2024 Mikel Krishnan Plan Of Treatment Next Appt Details Follow Up: 1 Week, Reason: Procedure Notes * Category Sub-Category Detail Notes [facility] Device Treatment Triton Triton Laser Hair Removal Head: Light (755/810) See written laser medical records Energy (07-13): 11 Pulse Type: Short Cooling: Strong Repeat Mode: 2 PPS Total Energy / Pulses: 1822 Adverse Reaction(s) / Comments:: None Re ports newton on the upper thighs with test spots at the last treatment. Repeated last fluence as the last treatment was 6 months ago. Client reports 75% hair reduction from first 4 treatments. Mild erythema and PFE noted after treatment. Progress Notes * Isabelle ANGELDOB:[birth year] (68 yo F)Acc No.[id number]:08/10/2024 Triton-30 Patient:?Isabelle ANGEL Provider:?Mikel Krishnan MD :1955???Age:68 Y???Sex:Female D ate:08/10/2024 Address[address] [place] [place] [address] Subjective: * Chief Complaints: * ???[facility]: Laser t reatment #5 of 5 (legs) * Medical History:? * Surgical History:? * Hospitalization/Major Diagno stic Procedure:? * Medications:? Objective: * Vitals:? Assessment: Plan: * Treatment: * Procedures:?[facility]: Aesthetics Device Treatment:?Triton ?Triton Laser Hair Removal Head?Light (755/810) See written laser medical records ?Energy (-)?11 ?Pulse Type?Short ?Cooling?Strong ?Repeat Mode?2 PPS ?Total Energy / Pulses?1822 ?Adverse Reaction(s) / Comments:?None Reports newton on the upper thighs with test spots at the last treatment. Repeated last fluence as the last treatment was 6 months ago. Client reports 75% hair reduction from first 4 treatments. Mild erythema and PFE noted after treatment.? * Procedure Codes:? * Follow Up:?1 Week * Billing Information: * Visit Code:? * Procedure Codes:? * HER TANNER Sign off status: Completed true * Provider:?Mikel Krishnan MD Date:?08/10 Generated for Lam philippe/Jenniffer/eTlizet on:?10/08/2024 10:24 PM LEATHER TANNER
== END 2024-10-07 09:22 | disposition home or self-care (01) ==
LOC: ANHIMG 09:24
PROVIDERS: PCP Family Medicine Adolescent Medicine; Visit Provider Nurse Practitioner
DX: M81.0 Age-related osteoporosis without current pathological fracture (principal); M85.88 Other specified disorders of bone density and structure, other site; M85.852 Other specified disorders of bone density and structure, left thigh; M85.851 Other specified disorders of bone density and structure, right thigh
CPT/HCPCS: 77080

== ENCOUNTER 2024-12-02 10:33 | Outpatient (CLI) | payer MEDICARE, SELFPAY ==
--- NOTE | ~2024-12-02 | MM_ITS ---
EXAMINATION: MM screening arnol BI w koko HISTORY: Screening TECHNIQUE: Craniocaudal and mediolateral oblique 3-D tomosynthesis images were obtained and synthetic 2-D images were generated. CAD analysis was submitted and interpreted. COMPARISON: Comparison to multiple prior studies sequentially, with oldest reviewed study dated 12/29. BREAST PARENCHYMAL COMPOSITION: Dense: The breasts are heterogeneously dense, which may obscure small masses FINDINGS: There is focal asymmetry which is new in the upper aspect of the right breast posteriorly o verlying the pectoralis muscle on MLO view. The left breast is stable without evidence for malignancy . IMPRESSION: 1. New focal right breast asymmetry superiorly on MLO view. 2. Additional mammographic views and possible breast ultrasound are recommended. BI-RADS Category 0: Incomplete: Needs additional imaging evaluation. Reviewed, dictated and finalized at location B. IMPRESSION: 1. New focal right breast asymmetry superiorly on MLO view. 2. Additional mammographic views and possible breast ultrasound are recommended . BI-RADS Category 0: Incomplete: Needs additional imaging evaluation.
== END 2024-12-02 10:34 | disposition home or self-care (01) ==
LOC: MICIMG 10:35
PROVIDERS: PCP Family Medicine Adolescent Medicine; Visit Provider Nurse Practitioner
DX: Z12.31 Encounter for screening mammogram for malignant neoplasm of breast (principal); R92.8 Other abnormal and inconclusive findings on diagnostic imaging of breast
CPT/HCPCS: 77063; 77067

== ENCOUNTER 2024-12-16 09:10 | Outpatient (CLI) | payer MEDICARE, SELFPAY ==
--- NOTE | ~2024-12-16 | MM_ITS ---
EXAMINATION: MM diagnostic arnol RT w koko HISTORY: Follow-up right breast asymmetry TECHNIQUE: Additional 3-D tomosynthesis images of the right breast were performed and synthetic 2-D i mages were generated. CAD analysis was submitted and interpreted. COMPARISON: Comparison to multiple prior studies sequentially, with oldest reviewed study dated 11/2019. BREAST PARENCHYMAL COMPOSITION: Not dense: There are scattered areas of fibroglandular density. FINDINGS: There are no suspicious masses, calcifications or architectural distortion in the right day ast to suggest malignancy. Area of asymmetry superiorly on MLO view, compresses with spot view, gaetano tible with superimposed fibroglandular tissue. IMPRESSION: 1. No mammographic evidence for malignancy in the right breast. 2. Routine yearly screening mammogram and regular clinical breast examination are recommended. BI-RADS Category 1: Negative Reviewed, dictated and finalized at location A. IMPRESSION: 1. No mammographic evidence for malignancy in the right breast. 2. Routine yearly screening mammogram and regular clinical breast examination a re recommended. BI-RADS Category 1: Negative
== END 2024-12-16 09:11 | disposition home or self-care (01) ==
LOC: MICIMG 09:11
PROVIDERS: PCP Family Medicine Adolescent Medicine; Visit Provider Nurse Practitioner Women's Health
DX: R92.8 Other abnormal and inconclusive findings on diagnostic imaging of breast (principal)
CPT/HCPCS: 77061; 77065; G0279

== ENCOUNTER 2025-09-13 11:27 | Outpatient (CLI) | payer MEDICARE, SELFPAY ==
--- NOTE | ~2025-09-13 | XR_ITS ---
[id number] INDICATION: Chest pain COMPARISON: NONE PA CHEST: No acute pulmonary process is evident. Cardiac size and pulmonary vascularity are unremarkable There is no pleural effusion or pneumothorax. No consolidation is identified. RIGHT RIBS: Three views of the right ribs demonstrate no acute rib fracture. IMPRESSION: 1. No acute pulmonary process. 2. No rib fracture is identified. Reviewed, dictated and finalized at location S. D ADVOCATE
== END 2025-09-13 11:28 | disposition home or self-care (01) ==
LOC: MICIMG 11:27
PROVIDERS: PCP Nurse Practitioner; Visit Provider Nurse Practitioner
DX: R07.89 Other chest pain (principal)
CPT/HCPCS: 71101